=== PATIENT | female | born 1985 | race African-American/Black ===

== ENCOUNTER 2017-01-07 19:13 | Inpatient (IN) | payer OTHER ==
[~2017-01-07] VITALS: Ht 172.7 cm; Wt 151.5 kg
[2017-01-07] VITALS (15 sets, daily range): BP systolic 144–148; BP diastolic 86–92; PULSE 85–101; RESP 15–18; TEMP 98.3
[~2017-01-07 19:13] MED LIST: PREN29TA PO
[2017-01-07] MEDS ORDERED: LIDOCAINE HCL 1% 50 ML VIAL I-DERMAL PRN (19:45)
[2017-01-07] MEDS ORDERED: NS 1000 ML IV PRN (19:45)
[2017-01-07] MEDS ORDERED: LACTATED RINGER'S 1000 ML BOLUS IV PRN (19:45)
[2017-01-07] MEDS ORDERED: OXYTOCIN 30 UNITS 500ML PREMIX IV ONE (19:45)
[2017-01-07] MEDS ORDERED: PENICILLIN G POT 2,500,000 UNITS/NS 100 ML IV SCH ×2 (19:45)
[2017-01-07] MEDS ORDERED: PENICILLIN G POT 5,000,000 UNITS/NS 100 ML (Mini-Bag Plus) IV ONE ×2 (19:45)
[2017-01-07] MEDS ORDERED: NS 500 ML BOLUS IV PRN (19:45)
[2017-01-07] MEDS ORDERED: MINERAL OIL 10 ML VIAL TOP PRN (19:45)
[2017-01-07] MEDS ORDERED: CITRIC ACID-SODIUM CITRATE LIQ 30 ML UDC PO SCH (19:45)
[2017-01-07] MEDS ORDERED: LIDOCAINE HCL 1% 50 ML VIAL INFIL PRN (19:45)
[2017-01-07] MEDS ORDERED: OXYTOCIN 30 UNITS/NS 500ML PREMIX IV SCH (20:00)
[2017-01-07] MEDS: LACTATED RINGER'S 1000 ML IV SCH (20:50)
[2017-01-07] MEDS: MISOPROSTOL 25 MCG SUPP - repeat dose VAGINAL SCH (20:50)
[2017-01-07 20:54] LABS: AUTOMATED NEUTROPHIL # 7.6 TH/MM3 (1.8-7.7); BASOPHIL # 0.1 TH/MM3 (0-0.2); BASOPHIL % 0.5 % (0.0-2.0); EOSINOPHIL # 0.1 TH/MM3 (0-0.4); HEMATOCRIT 34.9 % (35.0-46.0); HEMO FLAGS DIFF FINAL; LYMPH % 14.7 % (9.0-44.0); LYMPHOCYTE # 1.5 TH/MM3 (1.0-4.8); MEAN CELL VOLUME 86.6 FL (80.0-100.0); MEAN CORPUSCULAR HEMOGLOBIN 29.3 PG (27.0-34.0); MEAN CORPUSCULAR HGB CONC 33.8 % (32.0-36.0); MONO % 7.6 % (0.0-8.0); NEUT % 76.2 % (16.0-70.0); PLATELET COUNT 300 TH/MM3 (150-450); RED BLOOD COUNT 4.03 MIL/MM3 (4.00-5.30); RED CELL DISTRIBUTION WIDTH 13.7 % (11.6-17.2); WHITE BLOOD COUNT 9.9 TH/MM3 (4.0-11.0)
[2017-01-07] MEDS ORDERED: ZOLPIDEM TARTRATE 5 MG TAB PO PRN (21:00)
[2017-01-07 21:09] LABS: BLOOD, URINE TRACE (NEG); COMMENT (UR) CULT NOT INDICATED; CULTURE IF INDICATED CULT NOT INDICATED; GLUCOSE,URINE NEG (NEG); KETONE, URINE NEG (NEG); MUCUS URINE FEW /lpf (OCC); NITRITE,URINE NEG (NEG); SQUAMOUS EPITHELIAL CELL URINE <1 /hpf (0-5); URINE COLOR YELLOW (YELLW/STRAW)
[2017-01-08] VITALS (49 sets, daily range): BP systolic 115–144; BP diastolic 70–89; PULSE 82–101; RESP 18; TEMP 98–98.5
[2017-01-08] MEDS ORDERED: PENICILLIN G POT 2,500,000 UNITS/NS 100 ML IV SCH ×2
[2017-01-08 00:24] LABS: ANION GAP 10 MEQ/L (5-15); AST (GOT) 12 U/L (15-37); BICARBONATE 22.7 MEQ/L (21.0-32.0); BLOOD UREA NITROGEN 8 MG/DL (7-18); CHLORIDE 102 MEQ/L (98-107); GLOMERULAR FILTRATION RATE 138 ML/MIN (>89); POTASSIUM 3.7 MEQ/L (3.5-5.1); SODIUM (NA) 135 MEQ/L (136-145)
[2017-01-08 00:27] LABS: ALKALINE PHOSPHATASE 201 U/L (45-117); ALT (GPT) 13 U/L (10-53); TOTAL BILIRUBIN ADULT 0.3 MG/DL (0.2-1.0)
[2017-01-08] MEDS: LACTATED RINGER'S 1000 ML IV SCH ×3 (00:56→18:00)
[2017-01-08] MEDS: MISOPROSTOL 25 MCG SUPP - repeat dose VAGINAL SCH (00:56)
[2017-01-08] MEDS ORDERED: FERR325T PO (03:33)
[2017-01-08] MEDS ORDERED: PENICILLIN G POT 5,000,000 UNITS/NS 100 ML (Mini-Bag Plus) IV ONE ×2 (05:00)
[2017-01-08] MEDS: PENICILLIN G POT 2,500,000 UNITS/NS 100 ML IV SCH ×8 (10:35→21:00)
[2017-01-08] MEDS ORDERED: MORPHINE SULFATE 8 MG/ML INJ ONE (14:42)
[2017-01-08] MEDS: MISOPROSTOL 25 MCG SUPP VAGINAL SCH (20:00)
[2017-01-08] MEDS ORDERED: OXYTOCIN 30 UNITS/NS 500ML PREMIX IV SCH (22:00)
[2017-01-09] VITALS (89 sets, daily range): BP systolic 96–164; BP diastolic 53–99; PULSE 81–116; RESP 17–20; TEMP 97.4–100.1
[2017-01-09] MEDS: MISOPROSTOL 25 MCG SUPP VAGINAL SCH
[2017-01-09] MEDS: PENICILLIN G POT 2,500,000 UNITS/NS 100 ML IV SCH ×6 (03:15→13:00)
[2017-01-09] MEDS ORDERED: ONDANSETRON HCL 4 MG/2 ML VIAL ONE (09:40)
[2017-01-09] MEDS ORDERED: ePHEDrine/NS 25 MG/5 ML SYR ONE (10:58)
[2017-01-09] MEDS ORDERED: fentaNYL 2MCG-BUPIV 0.125% INJ 100 ML ONE (10:58)
[2017-01-09] MEDS ORDERED: BUPIVACAINE HCL PF 0.25% 10 ML VIAL ONE (11:41)
[2017-01-09] MEDS ORDERED: ePHEDrine/NS 25 MG/5 ML SYR IV PRN (13:00)
[2017-01-09] MEDS ORDERED: DO NOT ADMINISTER ANTICOAGULANTS XX PRN (13:00)
[2017-01-09] MEDS ORDERED: fentaNYL 2MCG-BUPIV 0.125% 100 ML EPIDURAL SCH (13:00)
[2017-01-09] MEDS ORDERED: NO SYSTEM NARCOTICS XX PRN (13:00)
[2017-01-09] MEDS ORDERED: LIDOCAINE HCL 1% 50 ML VIAL ONE (15:27)
[2017-01-09] MEDS ORDERED: DIPHTH/TETANUS/ACEL PERTUSSIS (BOOSTER) 0.5 ML VIAL/PFS IM ONE (16:00)
[2017-01-09] MEDS ORDERED: MEASLES, MUMPS, RUBELLA VACCINE 0.5 ML VIAL SQ ONE (16:00)
[2017-01-09] MEDS ORDERED: OXYTOCIN 30 UNITS-500ML PREMIX 500 ML ONE (16:49)
--- NOTE | 2017-01-09 16:49 | PD.OB.DELI ---
Delivery Date: Jan 09, 2017 Anesthesia: Epidural Episiotomy: None Vaginal Delivery: Normal Presentation: Occiput anterior Nuchal Cord: None Delayed cord clamping (45 sec): Yes Infant: Female One Minute : 9 Five Minute : 9 Weight: 7/14 Infant Care: Suctioned, Spontaneous crying, Responded to stimulation Placenta: Spontaneous delivery, Intact, Uterus explored +, 3 vessel cord Laceration: Perineal laceration, 2 deg Repair: Vicryl running Additional Information Nice delivery of Aurbrielle Second degree laceration repaired with 2-0 vicryl Baby is the second darkest albert seen Neida Tellez MD Jan 09, 2017 16:49
[2017-01-09] MEDS ORDERED: oxyCODONE/ACETAMINOPHEN 5 MG/325 MG TAB PO PRN (17:00)
[2017-01-09] MEDS ORDERED: WITCH HAZEL 50%/GLYCERIN 12.5% 40 PAD JAR TOPICAL PRN (17:00)
[2017-01-09] MEDS ORDERED: ALUMINUM/MAGNESIUM/SIMETH 30 ML CUP PO PRN (17:00)
[2017-01-09] MEDS ORDERED: ACETAMINOPHEN 325 MG TAB PO PRN (17:00)
[2017-01-09] MEDS ORDERED: SODIUM CHLORIDE 0.9% FLUSH 5 ML FLUSH IV PRN (17:00)
[2017-01-09] MEDS ORDERED: ONDANSETRON ODT 4 MG TAB PO PRN (17:00)
[2017-01-09] MEDS ORDERED: BENZOCAINE 20% TOPICAL SPRAY 60 ML CAN TOPICAL PRN (17:00)
[2017-01-09] MEDS ORDERED: OXYTOCIN 30 UNITS-500ML PREMIX 500 ML IV ONE (17:00)
[2017-01-09] MEDS ORDERED: DOCUSATE SODIUM 50 MG/SENNA 8.6 MG TAB PO PRN (17:00)
[2017-01-09] MEDS ORDERED: ZOLPIDEM TARTRATE 5 MG TAB PO PRN (17:00)
[2017-01-09] MEDS ORDERED: SODIUM CHLORIDE 0.9% FLUSH 5 ML FLUSH IV SCH (21:00)
[2017-01-09] MEDS: IBUPROFEN 600 MG TAB PO PRN (23:19)
[2017-01-09] MEDS: oxyCODONE/ACETAMINOPHEN 5 MG/325 MG TAB PO PRN (23:20)
[2017-01-10] MEDS: IBUPROFEN 600 MG TAB PO PRN ×2 (05:59→21:50)
[2017-01-10] MEDS: oxyCODONE/ACETAMINOPHEN 5 MG/325 MG TAB PO PRN ×3 (05:59→21:50)
[2017-01-10 08:02] VITALS: BP 135/71; PULSE 13; RESP 16; TEMP 98.1
[2017-01-10] MEDS ORDERED: IBUP-232 PO (12:13)
[2017-01-10] MEDS ORDERED: OXYC1TAB63 PO (12:13)
--- NOTE | 2017-01-10 12:14 | HHI.DCPOC ---
Discharge Care Plan Diagnosis: (1) Vaginal delivery Report Symptoms to Your Doctor -Temperate above 100.5 degrees -Redness, of incision or excessive or foul smelling drainage -Unusual pain or calf pain -Increased vaginal bleeding -Painful or difficulty urinating -Feelings of extreme sadness or anxiety after 2 weeks Goals to Promote Your Health * To prevent worsening of your condition and complications * To maintain your health at the optimal level Directions to Meet Your Goals Take your medications as prescribed Follow your dietary instruction Follow activity as directed Ensure plenty of rest for recovery Drink fluids for hydration Keep your appointments as scheduled Take your immunizations and boosters as scheduled If your symptoms worsen call your PCP, if no PCP go to Urgent Care Center or Emergency Room Smoking is Dangerous to Your Health. Avoid second hand smoke Call the 24-hour crisis hotline for domestic abuse at Neida Tellez MD Jan 10, 2017 12:13
[2017-01-10] MEDS: guaiFENesin/DEXTROMETHORPHAN 200 MG/20 MG/10 ML CUP PO PRN ×2 (13:56→21:51)
[2017-01-10 19:58] VITALS: BP 126/78; PULSE 95
[2017-01-10 19:59] VITALS: RESP 18; TEMP 98.1
--- NOTE | 2017-01-10 23:39 | HHI.OB ---
Subjective Post Day: 1 Remarks Doing well, baby is good Pain is well controlled and bleeding is smalll. Wants to go home in the am Objective Vitals/I&O Vital Signs Date Time Temp Pulse Resp B/P Pulse Ox O2 Delivery O2 Flow Rate FiO2 01/10/17 19:59 98.1 18 01/10/17 19:58 95 126/78 01/10/17 08:02 98.1 13 16 135/71 Objective Remarks GENERAL: Well-nourished, well-developed patient. CARDIOVASCULAR: Regular rate and rhythm without murmurs, gallops, or rubs. RESPIRATORY: Breath sounds equal bilaterally. No accessory muscle use. ABDOMEN/GI: Abdomen soft, non-tender. Fundus: Firm, non-tender at umbilicus. GENITOURINARY: Light to moderate bleeding. EXTREMITIES: No cyanosis or edema, non-tender, without signs of DVT. Medications and IVs Current Medications Medications (Trade) Dose Ordered Sig/Irvin Route Start Time Stop Time Status Last Admin (NS Flush) 2 ml BID IV 01/09/17 21:00 (NS Flush) 2 ml UNSCH PRN IV 01/09/17 17:00 (Tylenol) 650 mg Q4H PRN PO 01/09/17 17:00 (Motrin) 600 mg Q6H PRN PO 01/09/17 17:00 01/10/17 21:50 (Percocet 5-325 Mg) 1 tab Q4H PRN PO 01/09/17 17:00 01/10/17 21:50 (Percocet 5-325 Mg) 2 tab Q4H PRN PO 01/09/17 17:00 (Americaine 20% Top Spr) 1 spray Q4H PRN TOPICAL 01/09/17 17:00 01/09/17 23:20 (Tucks Pads) 1 applic QID PRN TOPICAL 01/09/17 17:00 01/09/17 23:20 (Mila-Colace) 2 tab Q12H PRN PO 01/09/17 17:00 01/09/17 23:19 (Ambien) 5 mg HS PRN PO 01/09/17 17:00 (Mag-Al Plus Susp Liq) 15 ml Q8H PRN PO 01/09/17 17:00 (Zofran Odt) 4 mg Q6H PRN PO 01/09/17 17:00 (Robitussin Dm 200-20 Mg/10 ml Liq) 10 ml Q4H PRN PO 01/10/17 12:15 01/10/17 21:51 Assessment/Plan Problem List: (1) Vaginal delivery Assessment and Plan PPD #1 Doing well Routine care Discharge Planning home in am Neida Tellez MD Jan 10, 2017 23:39
[2017-01-11] MEDS: guaiFENesin/DEXTROMETHORPHAN 200 MG/20 MG/10 ML CUP PO PRN (06:09)
== END 2017-01-11 13:47 | disposition home or self-care (01) | DRG 775 ==
LOC: H2EA 19:13 → H2EB 19:18 → H1EA 01-09 21:31
PROVIDERS: ADMIT Obstetrics & Gynecology; ATTEND Obstetrics & Gynecology
PROC: 10E0XZZ Delivery of Products of Conception, External Approach (ICD-10-PCS; principal; 2017-01-09)
PROC: 0KQM0ZZ Repair Perineum Muscle, Open Approach (ICD-10-PCS; 2017-01-09)
PROC: 00HU33Z Insertion of Infusion Device into Spinal Canal, Percutaneous Approach (ICD-10-PCS; 2017-01-09)
PROC: 3E0R3CZ (ICD-10-PCS; 2017-01-09)
DX: O70.1 Second degree perineal laceration during delivery (principal); Z37.0 Single live birth
CPT/HCPCS: 76816; 76818; 80053; 81001; 85025; 86900; 86901; 88307; 90715; J2270; J2405; J2540; J2590; J3010; J7120